=== PATIENT | male | born 1985 | race Caucasian/White ===

== ENCOUNTER 2017-02-25 09:57 | Inpatient (IN) | payer MEDICAID ==
[2017-02-25] VITALS (15 sets, daily range): BP systolic 112–191; BP diastolic 56–130; PULSE 80–98; RESP 16–31; TEMP 99.2; Ht 167.6 cm; Wt 124.5 kg
[~2017-02-25] VITALS: Ht 167.6 cm; Wt 124.5 kg
[~2017-02-25 09:57] MED LIST: IBUP-1542 PO; NPH10OT RIGHT EAR
--- NOTE | 2017-02-25 11:01 | ERD ---
ER Documentation Chief Complaint Date/Time DATE: 02/25/17 TIME: 10:52 Chief Complaint "PAINFUL BALL" ON LT BUTTOCK WITH PAIN RADIATING DOWN LT LEG. HPI 31-year-old male who presented to the emergency room for "I have the painful ball light on my left but it started about a week ago, and it has increased and very tender to touch." Denies headache, loss of consciousness, dizziness, blurry vision, changes in vision, photophobia, facial pain, ear pain, throat pain, difficulty swallowing, neck pain, shoulder pain, chest pain, cough, hemoptysis, abdominal pain, back pain, loss of appetite, nausea, vomiting, hematochezia, diarrhea, constipation, urinary symptoms, bladder and bowel incontinences, extremity weakness, extremity tenderness, numbness or tingling sensation, difficulty walking, recent travel, recent exposure to illness, recent antibiotic use in the last 3 months, fever, chills. Allergy: NKDA. PMH: Denies. Medications: Advil. Tylenol. Surgery: Right knee surgery. Family history: Denies. 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 Smokes about 5 sticks of cigarettes a day. Patient drinks alcoholic beverages. Denies use of illegal drugs. ROS All systems reviewed and are negative except as per history of present illness. Medications Home Meds Active Scripts Neomycin/Polymyxin/Hydrocort* (Cortisporin* Otic) 10 Ml Susp, 4 DROP RIGHT EAR QID for 7 Days, #1 EA Prov:ROSALINO HOUSTON NP 07/11/16 Ibuprofen* (Motrin*) 600 Mg Tab, 600 MG PO Q6H Y for PAIN AND OR ELEVATED TEMP, #30 TAB Prov:ROSALINO HOUSTON NP 07/11/16 Allergies Allergies: Coded Allergies: No Known Allergy (Unverified , 07/11/16) PMhx/Soc History of Surgery: Yes (RT KNEE X2 ) Anesthesia Reaction: No Hx Neurological Disorder: No Hx Respiratory Disorders: No Hx Cardiac Disorders: No Hx Psychiatric Problems: No Hx Miscellaneous Medical Probl: No Hx Alcohol Use: Yes (SOCIAL ) Hx Substance Use: No Hx Tobacco Use: Yes (5CIGS/DAY ) Smoking Status: Current every day smoker Physical Exam Vitals Vital Signs Date Time Temp Pulse Resp B/P Pulse Ox O2 Delivery O2 Flow Rate FiO2 4/10/17 10:10 99.2 114 20 156/90 98 Physical Exam CONSTITUTIONAL: Well-appearing; well-nourished; HEAD: Normocephalic; atraumatic. EYES: Conjunctiva clear, sclera non-icteric, EOM intact. PERRLA. Ears: Hearing intact. EACs clear, TMs non-bulging, non-inflamed, translucent & mobile, ossicles normal appearance, No obstructions, no erythema, no discharges Nose: No obstructions. No polyps. No external lesions. Mucosa non-inflamed. No external lesions, septum and turbinates normal. No rhinorrhea. No discharges. Frontal sinus is non-tender to palpation. Maxillary sinus is non-tender to palpation. MOUTH: Moist mucous membranes, no lesion, no obstructions, no vesicles, no thrush, patent airway Throat: Uvula in midline. Right tonsil is +1 with no erythema, no exudate. Left tonsil is +1 with no erythema, no exudate. Tolerating secretions well. Good gag reflex. Patent airway. Neck: Supple, without lesions, bruits, or adenopathy. No mass. Thyroid non- enlarged and non-tender to palpation. CHEST: Symmetrical chest. Respirations even and not labored. No retractions noted. CARDIOVASCULAR: Normal S1, S2. RRR. No murmurs, gallops. RESPIRATORY: Normal chest excursion with respiration; breath sounds clear and equal bilaterally; no wheezes, rhonchi, or rales. Breathing even and unlabored. Speaking in clear, full, and complete sentences w/ ease. ABDOMEN: Normal bowel sounds normal. Soft, round, non-distended, non-guarding, no tenderness, no rebound, no organomegaly, no masses, no pulsating abdominal mass. No hernia. No peritoneal signs. Perirectal area has abscess and indurated , tender to touch : No CVA tenderness. BACK: Symmetrical shoulder. Spine is midline without deformity, tenderness. No evidence of trauma or deformity. PELVIS: Stable pelvis. No evidence of trauma or deformity. MUSCULOSKELETAL: Normal gait and station. No misalignment, asymmetry, crepitation, defects, tenderness, masses, effusions, decreased range of motion, instability, atrophy or abnormal strength or tone in the head, neck, spine, ribs , pelvis or extremities. No calf tenderness. NEUROVASCULAR: Distal pulses are present. Pedal pulse are present, equal, and normal. Capillary refills are < 2 seconds. NEUROLOGIC: Alert and oriented x4. Speaks full and clear sentences. Cranial Nerves II-XII normal. Sensation to pain, touch, and proprioception normal. Grossly unremarkable. No neurologic deficits. Romberg test is negative. PSYCHOLOGICAL: The patients mood and manner are appropriate. No hallucinations , delusions. Not SI. Not HI. Has the capacity to decide for self SKIN: Normal for age and ethnicity; warm; dry; good turgor; no apparent lesions or exudates. No rashes, hives, discoloration. Intact. Left gluteal (medial part ) redness/swelling, warmth to touch, tender to touch. Results 24 hrs Current Medications Medications (Trade) Dose Ordered Sig/Amber Route PRN Reason Start Time Stop Time Status Last Admin Dose Admin Piperacillin Sod/ Tazobactam Sod 100 ml @ 200 mls/hr ONCE ONCE IVPB 02/25/17 11:30 02/25/17 11:59 Vancomycin HCl (Vancocin) 250 ml @ 125 mls/hr ONCE IVPB 02/25/17 11:30 02/25/17 13:29 Morphine Sulfate (morphine) 4 mg ONCE STAT IV 02/25/17 11:20 02/25/17 11:23 DC Ondansetron HCl (Zofran Inj) 4 mg ONCE STAT IV 02/25/17 11:20 02/25/17 11:23 DC Procedures/MDM Examination: Please see physical examination. Disease process, medical treatment was explained to the patient and family member. They verbalized understanding and agreed with the medical treatment, and follow-up care. Treatment: Re-evaluation: Consultation: Differential diagnosis: Medical decision makin-year-old male who presented to the emergency room for "I have the painful ball light on my left but it started about a week ago, and it has increased and very tender to touch." Patient's complaint, patient' s history about his complaint, my physical findings are consistent with my final diagnosis of Case was discussed with supervising physician, Dr. Carlos Enrique Goddard who agreed with my medical decision making. he also examined the patient. Dr. Leigh also examined the patient. DESTINEY SINGH Feb 25, 2017 11:01 sentences, denies pain, has no neurological deficits, has no neurovascular deficits, difficulty of breathing. Breathing even and unlabored. Lung sounds are clear to auscultation. Not in distress. Appears comfortable. Ambulatory with steady gait. Appears satisfied with care provided here in ED. DESTINEY SINGH Feb 25, 2017 11:01 DESTINEY SINGH Feb 25, 2017 11:01
[2017-02-25] MEDS ORDERED: ONDANSETRON 4 MG INJ IV STA (11:20)
[2017-02-25] MEDS ORDERED: morphine 4 MG/ML VIAL IV STA ×2 (11:20→12:55)
[2017-02-25] MEDS ORDERED: PIPER-TAZO 3.375 GM IV (PMX) 100 ML IVPB ONE (11:30)
[2017-02-25] MEDS ORDERED: VANCOMYCIN 1 GM (PMX) 250 ML IVPB SCH (11:30)
[2017-02-25 11:40] LABS: ADD SCAN DIFF NO
[2017-02-25 11:42] LABS: BASOPHIL # 0.1 10^3/ul (0.0-0.1); BASOPHILS % 0.4 % (0.0-2.0); EOSINOPHILS # 0.2 10^3/ul (0.0-0.5); EOSINOPHILS % 0.7 % (0.0-7.0); HEMATOCRIT 42.7 % (42.0-52.0); HEMOGLOBIN 13.9 g/dl (14.0-18.0); LYMPHOCYTES # 2.2 10^3/ul (0.8-2.9); LYMPHOCYTES % 10.4 % (15.0-51.0); MEAN CORPUSCULAR HEMOGLOBIN 29.8 pg (29.0-33.0); MEAN CORPUSCULAR HGB CONC 32.6 g/dl (32.0-37.0); MEAN CORPUSCULAR VOLUME 91.6 fl (82.0-101.0); MEAN PLATELET VOLUME 8.6 fl (7.4-10.4); MONOCYTE # 1.5 10^3/ul (0.3-0.9); MONOCYTES % 7.2 % (0.0-11.0); NEUTROPHIL # 16.6 10^3/ul (1.6-7.5); NEUTROPHILS % 80.6 % (39.0-77.0); PLATELET COUNT 339 10^3/UL (140-415); RED BLOOD COUNT 4.66 10^6/ul (4.70-6.10); RED CELL DISTRIBUTION WIDTH 12.6 % (11.5-14.5); WHITE BLOOD COUNT 20.6 10^3/ul (4.8-10.8)
[2017-02-25 11:58] LABS: ALBUMIN 3.3 g/dl (3.3-4.9)
[2017-02-25 11:59] LABS: POTASSIUM 4.3 mmol/L (3.5-5.1)
[2017-02-25 12:01] LABS: BILIRUBIN,INDIRECT 0.7 mg/dl (0-1.1); BILIRUBIN,TOTAL 0.7 mg/dl (0.2-1.3); CREATININE 0.83 mg/dl (0.61-1.24)
[2017-02-25 12:02] LABS: ALBUMIN/GLOBULIN RATIO 0.91; TOTAL PROTEIN 6.9 g/dl (6.1-8.1)
[2017-02-25] MEDS ORDERED: IOHEXOL 300MG/ML 150 ML BTL ONE (12:21)
[2017-02-25] MEDS ORDERED: SOD CHLORIDE 0.9% 100 ML ONE (12:21)
--- NOTE | 2017-02-25 12:55 | RADRPT ---
PROCEDURE: CT Abdomen and pelvis with contrast. CLINICAL INDICATION: Left and pelvic abscess. TECHNIQUE: CT scan of the abdomen and pelvis with contrast was performed on a multidetector high-r esolution CT scan. The patient was scanned following the uncomplicated intravenous administration o f 1 ml Omnipaque-300. Coronal and sagittal reformatted images were obtained from the axial source i mages. Standard CT of the abdomen pelvis with contrast protocols were performed. The total exam CTDI equals 23.71 mGy and the total exam DLP equals 1618.23 mGy-cm. One or more of the following dose reduction techniques were used: - Automated exposure control. - Adjustment of the mA and/or kV according to patient size. Use of iterative reconstruction technique. COMPARISON: None FINDINGS: In the medial left gluteal region is an 8 x 4.5 cm the irregular thick-walled loculated fluid collec tion which does not contain air and its anterior medial superior aspect is contiguous with the left perineum/anus. This finding is consistent with an abscess however recommend aspiration for further evaluation. Note that there is mild dependent edema in the subcutaneous fat of the left buttock. N o other localized fluid collections or soft tissue masses. No evidence of soft tissue gas. In the posterior superior right lobe of the liver is a nonenhanced 0.8 cm low density and in the med ial anterior superior right lobe of the liver is a nonenhancing 1.5 cm low density consistent with c ysts. No other intrahepatic masses. The spleen pancreas adrenal glands and kidneys are normal in si ze configuration without focal lesions. No evidence of hydronephrosis bilaterally. The gallbladder is unremarkable and there is no evidence of biliary ductal dilation. New the urinary bladder is un remarkable. Negative for intra-abdominal free air, free fluid, abscesses or lymphadenopathy. There is colonic d iverticulosis but no CT evidence of diverticulitis. The colon is otherwise unremarkable. The stoma ch, small bowel and appendix are unremarkable. The lung bases are unremarkable. The aorta is unrem arkable. New there is mild degenerative changes lower thoracic and lumbar spine. There is a minima l dextrorotoscoliosis of the lumbar spine. There are no acute osseous findings are osteoblastic/ost eolytic lesions. There is a small fat containing left inguinal hernia but no herniated bowel or str angulation. IMPRESSION: 1. In the medial left gluteal region is and 8 x 4.5 cm irregular thick-walled loculated fluid collec tion with its anterior medial superior aspect contiguous with the left perineum/anus. This finding is consistent with an abscess however recommend clinical correlation and aspiration. Additional mild subcutaneous reactive inflammatory changes involving the subcutaneous left buttock. 2. Diverticulosis of the colon but no CT evidence of diverticulitis. Unremarkable appendix. 3. 2 small nonenhancing low densities involving the right lobe of the liver consistent with cysts. 4. Small left inguinal fat-containing hernia but no herniated hour strangulation. RPTAT:AAJJ Physician Meg Date Time Electronically viewed and signed by Mary Kay Mead Physician on 02/25/2017 12:55 BM/
[2017-02-25] MEDS ORDERED: SODIUM CHLORIDE 0.9% 1L BAG IV* STA (12:58)
[2017-02-25] MEDS ORDERED: SOD CHLORIDE 0.9% 1,000 ML IV SCH (13:18)
[2017-02-25] MEDS ORDERED: HYDROmorphONE 1 MG/ML SYG IV STA (13:29)
[2017-02-25] MEDS ORDERED: ACETAMINOPHEN 325 MG TAB PO PRN ×3 (13:30→16:30)
[2017-02-25] MEDS ORDERED: ONDANSETRON 4 MG INJ IV PRN ×4 (13:30→17:00)
--- NOTE | 2017-02-25 13:56 | ERA ---
ER Documentation Chief Complaint Date/Time DATE: 02/25/17 TIME: 13:53 Chief Complaint "PAINFUL BALL" ON LT BUTTOCK WITH PAIN RADIATING DOWN LT LEG. HPI This is a 31-year-old male who presents to the emergency room for evaluation of pain on the left buttocks with shooting down his leg. The patient states that he has had this pain for approximately 4 days duration. He describes it as a sharp pain worse with any pressure that he places on that side. The patient denies any fevers, and was originally seen in our fast track and transferred to my care for further workup. Patient is denying any relieving factors for his pain, and denies being on any antibiotics. ROS All systems reviewed and are negative except as per history of present illness. Medications Home Meds Active Scripts Neomycin/Polymyxin/Hydrocort* (Cortisporin* Otic) 10 Ml Susp, 4 DROP RIGHT EAR QID for 7 Days, #1 EA Prov:ROSALINO HOUSTON REPORT PROGRAMMER 07/11/16 Ibuprofen* (Motrin*) 600 Mg Tab, 600 MG PO Q6H Y for PAIN AND OR ELEVATED TEMP, #30 TAB Prov:ROSALINO HOUSTON REPORT PROGRAMMER 07/11/16 Allergies Allergies: Coded Allergies: No Known Allergy (Unverified , 07/11/16) PMhx/Soc History of Surgery: Yes (RT KNEE X2 ) Anesthesia Reaction: No Hx Neurological Disorder: No Hx Respiratory Disorders: No Hx Cardiac Disorders: No Hx Psychiatric Problems: No Hx Miscellaneous Medical Probl: No Hx Alcohol Use: Yes (SOCIAL ) Hx Substance Use: No Hx Tobacco Use: Yes (5CIGS/DAY ) Smoking Status: Current every day smoker Physical Exam Vitals Vital Signs Date Time Temp Pulse Resp B/P Pulse Ox O2 Delivery O2 Flow Rate FiO2 02/25/17 13:00 76 18 106/86 99 Room Air 02/25/17 10:10 99.2 114 20 156/90 98 Physical Exam INITIAL VITAL SIGNS: Reviewed by me GENERAL: The patient is well developed and appropriate for usual state of health in no apparent distress HEENT: Pupils equal, round, and reactive to light. EOMI. There is no scleral icterus. NECK: C-spine is soft and supple, there is no meningismus. There is no cervical lymphadenopathy. LUNGS: Clear to auscultation bilaterally. There are no rales, wheezes or rhonchi. HEART: Tachycardic no murmurs, clicks, rubs or gallops. ABDOMEN: Soft, non-tender, non-distended. There are bowel sounds in all four quadrants. No rebound or guarding. EXTREMITIES: There is no peripheral cyanosis or edema. No focal swelling or erythema. NEUROLOGICAL: The patient moves all four extremities with 5/5 strength. Cranial nerves II - XII are intact. Normal gait. Alert and oriented SKIN: Left-sided. Rectal abscess with surrounding area of induration, fluctuance, and cellulitis. No purulent drainage noted., Tender to palpation there is no apparent rash or petechiae. HEME/LYMPHATIC: There is no evidence of excessive bruising or lymphedema. PSYCHIATRIC: The patient does not appear anxious or depressed. Result Diagram: 02/25/17 1130 02/25/17 1130 Results 24 hrs Laboratory Tests Test 02/25/17 11:30 02/25/17 12:59 White Blood Count 20.610^3/ul Red Blood Count 4.6610^6/ul Hemoglobin 13.9g/dl Hematocrit 42.7% Mean Corpuscular Volume 91.6fl Mean Corpuscular Hemoglobin 29.8pg Mean Corpuscular Hemoglobin Concent 32.6g/dl Red Cell Distribution Width 12.6% Platelet Count 56346^3/UL Mean Platelet Volume 8.6fl Neutrophils % 80.6% Lymphocytes % 10.4% Monocytes % 7.2% Eosinophils % 0.7% Basophils % 0.4% Nucleated Red Blood Cells % 0.0/100WBC Neutrophils # 16.610^3/ul Lymphocytes # 2.210^3/ul Monocytes # 1.510^3/ul Eosinophils # 0.210^3/ul Basophils # 0.110^3/ul Nucleated Red Blood Cells # 0.010^3/ul Sodium Level 139mmol/L Potassium Level 4.3mmol/L Chloride Level 98mmol/L Carbon Dioxide Level 29mmol/L Anion Gap 16 Blood Urea Nitrogen 11mg/dl Creatinine 0.83mg/dl Glucose Level 136mg/dl Calcium Level 9.0mg/dl Total Bilirubin 0.7mg/dl Direct Bilirubin 0.00mg/dl Indirect Bilirubin 0.7mg/dl Aspartate Amino Transf (AST/SGOT) 15IU/L Alanine Aminotransferase (ALT/SGPT) 19IU/L Alkaline Phosphatase 73IU/L Total Protein 6.9g/dl Albumin 3.3g/dl Globulin 3.60g/dl Albumin/Globulin Ratio 0.91 Lactic Acid Level 1.2mmol/L Current Medications Medications (Trade) Dose Ordered Sig/Amber Route PRN Reason Start Time Stop Time Status Last Admin Dose Admin Piperacillin Sod/ Tazobactam Sod 100 ml @ 200 mls/hr ONCE ONCE IVPB 02/25/17 11:30 02/25/17 11:59 DC 02/25/17 11:34 Vancomycin HCl (Vancocin) 250 ml @ 125 mls/hr ONCE IVPB 02/25/17 11:30 02/25/17 13:29 DC 02/25/17 12:09 Morphine Sulfate (morphine) 4 mg ONCE STAT IV 02/25/17 11:20 02/25/17 11:23 DC 02/25/17 11:30 Ondansetron HCl (Zofran Inj) 4 mg ONCE STAT IV 02/25/17 11:20 02/25/17 11:23 DC 02/25/17 11:31 IV Flush 10 ml 10 ml STK-MED ONCE .ROUTE 02/25/17 12:21 02/25/17 12:22 DC 02/25/17 12:37 Sodium Chloride (NS) 100 ml @ ud STK-MED ONCE .ROUTE 02/25/17 12:21 02/25/17 12:22 DC 02/25/17 12:40 Iohexol (Omnipaque 300mg/ ml) 150 ml STK-MED ONCE .ROUTE 02/25/17 12:21 02/25/17 12:22 DC 02/25/17 12:38 Morphine Sulfate (morphine) 4 mg ONCE STAT IV 02/25/17 12:55 02/25/17 12:56 DC 02/25/17 13:00 Sodium Chloride 3860 ml 3,860 ml BOLUS OVER 2 HOURS STAT IV* 02/25/17 12:58 02/25/17 13:00 DC 02/25/17 13:03 Sodium Chloride (NS) 1,000 ml @ 125 mls/hr Q8H IV 02/25/17 13:18 02/25/17 21:17 Ondansetron HCl (Zofran Inj) 4 mg BRIDGE ORDER PRN IV NAUSEA AND/OR VOMITING 02/25/17 13:30 02/26/17 13:29 Acetaminophen (Tylenol Tab) 650 mg ER BRIDGE PRN PO MILD PAIN/FEVER 02/25/17 13:30 02/26/17 13:29 Hydromorphone HCl (Dilaudid) 1 mg ONCE STAT IV 02/25/17 13:29 02/25/17 13:30 DC 02/25/17 13:32 Procedures/MDM CT abdomen pelvis with: 1. In the medial left gluteal region is and 8 x 4.5 cm irregular thick-walled loculated fluid collection with its anterior medial superior aspect contiguous with the left perineum/anus. This finding is consistent with an abscess however recommend clinical correlation and aspiration. Additional mild subcutaneous reactive inflammatory changes involving the subcutaneous left buttock. 2. Diverticulosis of the colon but no CT evidence of diverticulitis. Unremarkable appendix. 3. 2 small nonenhancing low densities involving the right lobe of the liver consistent with cysts. 4. Small left inguinal fat-containing hernia but no herniated hour strangulation. This 31-year-old male presents to the emergency room for evaluation of pain over the left buttocks. When I evaluated this patient he did have tachycardia, and definitely had what appeared to be up perirectal abscess. The patient did have a surrounding area of cellulitis, and given his extreme pain he had lab work drawn and was given morphine. This patient had lab work drawn and fascia, and had antibiotics started in fast track. When I evaluated this patient his lab work had returned and he did have a leukocytosis of greater than 20,000. Given his tachycardia, leukocytosis, and source of infection this patient does meet sepsis criteria. Blood cultures were obtained after antibiotics were started due to the fact that received this patient after his antibiotics have been started already in fast track. This patient is unable to tolerate a drainage in the emergency room. He will be admitted at this time in the care of . I have contacted our general surgeon litigation attorney associate, Dr. Ellison who agrees to evaluate this patient. This patient is n.p.o. at this time and was given greater than 30 cc/kg of IV normal saline. No need for vasopressors as his mean arterial pressures greater than 65. Critical Care: Excluding all billable procedures Time: 39 minutes Treatments/Evaluations: Close monitoring and treatment of unstable vital signs, cardiorespiratory, and neurologic status, while maintaining tight balance of fluid, respiratory, and cardiac interventions. Departure Diagnosis: Primary Impression: Sepsis Additional Impression: Perirectal abscess Condition: JOHN Benson DO Feb 25, 2017 13:56
--- NOTE | 2017-02-25 14:24 | CONS ---
Date/Time of Note Date/Time of Note DATE: 02/25/17 TIME: 14:21 Assessment/Plan Assessment/Plan Chief Complaint/Hosp Course Morbidly obese 51-year-old male with perianal abscess * Continue nothing by mouth/IV fluid hydration/broad-spectrum intravenous antibiotics * Patient will require incision and drainage. * Discussed with patient including all risks and benefits. He understands and agrees to proceed. Informed consent will be obtained and he'll be scheduled for incision and drainage of perianal abscess Problems: Consultation Date/Type/Reason Admit Date/Time Date of Consultation: Feb 25, 2017 Type of Consultation: GENERAL SURGERY Reason for Consultation Perianal abscess Hx of Present Illness The patient is a morbidly obese 31-year-old male who presented to the emergency room complaining of left sided perianal and buttock pain. This has been present for the past 5 days. He reports gradual enlargement with some redness. He denies any discharge. He denies any fever/chills. There have been no episodes of similar pain in the past. A 14 point review of systems was conducted and was negative except for that which is mentioned in history of present illness Past Medical History Medical History: no pertinent history Past Surgical History Knee surgery Family History Significant Family History: no pertinent family hx Social History Smoking Status: Current every day smoker Exam/Review of Systems Vital Signs Vitals Vital Signs Date Time Temp Pulse Resp B/P Pulse Ox O2 Delivery O2 Flow Rate FiO2 02/25/17 14:18 79 20 123/74 98 Room Air 02/25/17 10:10 99.2 Exam GENERAL: Awake, alert, oriented 3. No acute distress. SKIN: No jaundice. HEENT: PERRLA, EOMI, No Scleral Icterus NECK: Supple without JVD CARDIOVASCULAR: S1S2, regular rate and rhythm. No murmurs appreciated. RESPIRATORY: Clear to auscultation bilaterally. ABDOMEN: Obese, Soft, bowel sounds present, nondistended, nontender to palpation. BUTTOCKS: Left-sided perianal abscess extending to left medial buttocks. Surrounding cellulitis and induration present. Tender to palpation. No discharge. EXTREMITIES: Free range of motion 4. No cyanosis, edema, or clubbing. NEUROLOGIC: Cranial nerves II-XII are intact. Sensation is intact grossly. Results Result Diagram: 02/25/17 1130 02/25/17 1130 Results 24 hrs Laboratory Tests Test 02/25/17 11:30 02/25/17 12:59 White Blood Count 20.6 H Red Blood Count 4.66 L Hemoglobin 13.9 L Hematocrit 42.7 Mean Corpuscular Volume 91.6 Mean Corpuscular Hemoglobin 29.8 Mean Corpuscular Hemoglobin Concent 32.6 Red Cell Distribution Width 12.6 Platelet Count 339 Mean Platelet Volume 8.6 Neutrophils % 80.6 H Lymphocytes % 10.4 L Monocytes % 7.2 Eosinophils % 0.7 Basophils % 0.4 Nucleated Red Blood Cells % 0.0 Neutrophils # 16.6 H Lymphocytes # 2.2 Monocytes # 1.5 H Eosinophils # 0.2 Basophils # 0.1 Nucleated Red Blood Cells # 0.0 Sodium Level 139 Potassium Level 4.3 Chloride Level 98 Carbon Dioxide Level 29 Anion Gap 16 Blood Urea Nitrogen 11 Creatinine 0.83 Glucose Level 136 Calcium Level 9.0 Total Bilirubin 0.7 Direct Bilirubin 0.00 Indirect Bilirubin 0.7 Aspartate Amino Transf (AST/SGOT) 15 Alanine Aminotransferase (ALT/SGPT) 19 Alkaline Phosphatase 73 Total Protein 6.9 Albumin 3.3 Globulin 3.60 H Albumin/Globulin Ratio 0.91 Lactic Acid Level 1.2 Medications Medications Current Medications Sodium Chloride (NS) 1,000 ml @ 125 mls/hr Q8H IV ; Start 02/25/17 at 13:18; Stop 02/25/17 at 21:17 Procedures Procedures PROCEDURE: CT Abdomen and pelvis with contrast. CLINICAL INDICATION: Left and pelvic abscess. TECHNIQUE: CT scan of the abdomen and pelvis with contrast was performed on a multidetector high-resolution CT scan. The patient was scanned following the uncomplicated intravenous administration of 1 ml Omnipaque-300. Coronal and sagittal reformatted images were obtained from the axial source images. Standard CT of the abdomen pelvis with contrast protocols were performed. The total exam CTDI equals 23.71 mGy and the total exam DLP equals 1618.23 mGy- cm. One or more of the following dose reduction techniques were used: - Automated exposure control. - Adjustment of the mA and/or kV according to patient size. Use of iterative reconstruction technique. COMPARISON: None FINDINGS: In the medial left gluteal region is an 8 x 4.5 cm the irregular thick-walled loculated fluid collection which does not contain air and its anterior medial superior aspect is contiguous with the left perineum/anus. This finding is consistent with an abscess however recommend aspiration for further evaluation. Note that there is mild dependent edema in the subcutaneous fat of the left buttock. No other localized fluid collections or soft tissue masses. No evidence of soft tissue gas. In the posterior superior right lobe of the liver is a nonenhanced 0.8 cm low density and in the medial anterior superior right lobe of the liver is a nonenhancing 1.5 cm low density consistent with cysts. No other intrahepatic masses. The spleen pancreas adrenal glands and kidneys are normal in size configuration without focal lesions. No evidence of hydronephrosis bilaterally. The gallbladder is unremarkable and there is no evidence of biliary ductal dilation. New the urinary bladder is unremarkable. Negative for intra-abdominal free air, free fluid, abscesses or lymphadenopathy. There is colonic diverticulosis but no CT evidence of diverticulitis. The colon is otherwise unremarkable. The stomach, small bowel and appendix are unremarkable. The lung bases are unremarkable. The aorta is unremarkable. New there is mild degenerative changes lower thoracic and lumbar spine. There is a minimal dextrorotoscoliosis of the lumbar spine. There are no acute osseous findings are osteoblastic/osteolytic lesions. There is a small fat containing left inguinal hernia but no herniated bowel or strangulation. IMPRESSION: 1. In the medial left gluteal region is and 8 x 4.5 cm irregular thick-walled loculated fluid collection with its anterior medial superior aspect contiguous with the left perineum/anus. This finding is consistent with an abscess however recommend clinical correlation and aspiration. Additional mild subcutaneous reactive inflammatory changes involving the subcutaneous left buttock. 2. Diverticulosis of the colon but no CT evidence of diverticulitis. Unremarkable appendix. 3. 2 small nonenhancing low densities involving the right lobe of the liver consistent with cysts. 4. Small left inguinal fat-containing hernia but no herniated hour strangulation. RPTAT:AAJJ Physician Meg Date Time Electronically viewed and signed by Physician Meg on 02/25/2017 12:55 BM/ CC: DESTINEY SINGH,RIA Vasquez MD Feb 25, 2017 14:24
[2017-02-25] MEDS ORDERED: HYDROCODONE/APAP (5/325) TAB PO PRN ×2 (15:00→16:30)
[2017-02-25] MEDS ORDERED: morphine 2 MG INJ IV PRN (15:00)
[2017-02-25] MEDS ORDERED: NACL 0.9% 3 ML SYG IV SCH (15:00)
[2017-02-25] MEDS ORDERED: ZOLPIDEM 5 MG TAB PO PRN (15:00)
[2017-02-25] MEDS ORDERED: BISACODYL (EC) 5 MG TAB PO PRN (15:00)
[2017-02-25] MEDS ORDERED: DOCUSATE SODIUM 100 MG CAP PO PRN (15:00)
[2017-02-25] MEDS ORDERED: GLYCOPYRROLATE 0.4 MG INJ ONE (15:21)
[2017-02-25] MEDS ORDERED: LIDOCAINE 2% (SDV) 5 ML INJ ONE (15:21)
[2017-02-25] MEDS ORDERED: ROCURONIUM 50 MG INJ ONE (15:21)
[2017-02-25] MEDS ORDERED: PROPOFOL 20 ML ONE (15:21)
[2017-02-25] MEDS ORDERED: MIDAZOLAM 1 MG/ML 2 ML INJ ONE (15:21)
[2017-02-25] MEDS ORDERED: FENTAnyl 50 MCG/ML VIAL ONE (15:21)
[2017-02-25] MEDS ORDERED: NEOSTIGMINE 3 MG/3 ML SYRINGE ONE (15:21)
[2017-02-25] MEDS ORDERED: LIDOCAINE 1%/EPI 30 ML INJ ONE (15:45)
[2017-02-25] MEDS ORDERED: FLUMAZENIL 0.5 MG INJ ONE (15:57)
--- NOTE | 2017-02-25 16:13 | OPR ---
Date/Time of Note Date/Time of Note DATE: 02/25/17 TIME: 16:09 Operative Report Procedure Date: Feb 25, 2017 Preoperative Diagnosis Perianal abscess Postoperative Diagnosis Perianal abscess Operation Performed Incision and drainage of perianal abscess Surgeon: RIA GREENBERG MD Anesthesia: MAC Anesthesiologist: ROSA CASTANO MD Estimated Blood Loss: minimal Specimens Wound cultures and sensitivity Complications: None Pt Condition Post Procedure: stable Disposition: PACU Indications The patient is a morbidly obese 31-year-old male who presented to the emergency room complaining of severe perianal pain. He was diagnosed on physical exam as having a perianal abscess. This was confirmed via CT scan done by the emergency room. He was scheduled for urgent incision and drainage. All risks and benefits benefits of the procedure including, but not limited to: Wound infection, excessive bleeding, prolonged wound healing, abscess recurrence , etc. were all explained to the patient in full detail. He fully understood and wished to proceed with the procedure. Informed consent was obtained. Operative\Procedure Findings Copious amounts of pus drained Procedure Description The patient was brought to the operating room and placed supine on the operating table. Bilateral sequential compression devices were placed on both lower extremities. The patient was given dose of broad-spectrum intravenous antibiotics while in the emergency room. After the induction of adequate sedation the patient was positioned in right lateral decubitus position with the left side up. The buttocks was taped apart. The buttock and perianal area were then prepped and draped in standard surgical fashion. After performance of the surgical timeout the skin over the most fluctuant part of the abscess located in the left perianal area and involving the medial buttocks was anesthetized with 1% lidocaine with epinephrine. Aspiration was done using an 18 -gauge needle with confirmation of pus. An incision was then made using a 15 blade scalpel. Immediately copious amounts of pus were drained. Cultures were taken and sent for microbiological analysis. Once all the pus was suctioned out wound cavity was irrigated with copious amounts of saline. Hemostasis was inspected for and noted to be adequate. The wound was then packed with 1 inch iodoform packing. The incision was cleaned. Further local anesthesia was applied around the incision site. Incision was then dressed with sterile dressings. The patient was then transported to the recovery room in stable condition. All counts were correct at the end of the case 2 RIA GREENBERG MD Feb 25, 2017 16:13
[2017-02-25] MEDS: AMPICILLIN/SULB 3 GM/NS (PMX) 100 ML IVPB SCH ×2 (16:30→21:45)
[2017-02-25] MEDS ORDERED: hydrALAzine 20 MG INJ IV PRN (17:00)
[2017-02-25] MEDS ORDERED: FENTAnyl 50 MCG/ML VIAL IV PRN ×2 (17:00)
[2017-02-25] MEDS ORDERED: MEPERIDINE 25 MG INJ IV PRN (17:00)
[2017-02-25] MEDS ORDERED: HYDROmorphONE (0.2 MG/ML) 10ML SYG IV PRN ×3 (17:00)
[2017-02-25] MEDS ORDERED: DIPHENHYDRAMINE 50 MG INJ IV PRN (17:00)
[2017-02-25] MEDS: HYDROmorphONE 1 MG/ML SYG IV PRN ×2 (18:01→22:03)
[2017-02-25] MEDS: DEXTROSE 5%-0.45% NACL 1,000 ML IV SCH (18:17)
--- NOTE | 2017-02-25 18:37 | HP ---
DATE OF ADMISSION: 02/25/2017 SENIOR CHEMICAL PROCESS ENGINEER: Anselmo Urias MD CHIEF COMPLAINT: Rectal pain. HISTORY OF PRESENT ILLNESS: This is a 31-year-old gentleman with no significant past medical histor y who presents to [facility] secondary to having anal/rectal discomfort. The bo ent presented to [facility] after having this rectal discomfort for the past 7 day s. Upon arrival to ER, the patient's CT abdomen and pelvis was obtained, which showed in the medial left gluteal region there is an 8 x 4.5 cm irregular thick walled loculated fluid collection within the anterior and medial superior aspect and contiguous with the left perineal/anus. This finding c onsistent with abscess; however, recommend clinical correlation and aspiration, diverticulosis of th e colon with no CT evidence of diverticulitis. General surgery was consulted. The patient was plac ed on Zosyn and IV fluids, made n.p.o., pain medication. General surgery was consulted and, after e valuation with general surgery and discussing the mode of the treatment and discussing the risks and the benefits of the surgery, signed a consent. The patient was taken to OR for I and D of the alix anal abscess. The patient tolerated the procedure well and was taken to recovery room. At this jayde e, the patient denies any chest pain, shortness of breath, nausea, vomiting, diarrhea. No headache, dizziness, lightheadedness. No change in visual acuity, diplopia, photophobia, abdominal pain. Is still complaining of having mild gluteal/rectal pain. Otherwise, denies any other discomfort. PAST MEDICAL AND SURGICAL HISTORY: None. SOCIAL HISTORY: Negative x3 for smoking, alcohol, illicit drugs. FAMILY HISTORY: Noncontributory. REVIEW OF SYSTEMS: Denies any fever, chills, weight gain, weight loss, anorexia. No chest pain, pa lpitations, edema, orthopnea. No change in visual acuity, diplopia, photophobia. No headache, dizz iness, lightheadedness. No abdominal pain. No nausea, vomiting, diarrhea. No dysuria, hematuria, urgency, incontinence. No recent travel history. No sick contact. Positive for rectal pain. Othe rwise the 12 review of systems has been found to be negative. PHYSICAL EXAMINATION: VITAL SIGNS: Temperature 96.6, pulse 96, respiration 23, blood pressure 139/75, oxygen saturation 9 7% on room air. GENERAL APPEARANCE: The patient is lying in bed comfortably without any distress. He is awake, yumiko rt, oriented. He is able to answer my questions properly. EYES AND ENT: Conjunctivae and lids are normal. Pupils are normal. Extraocular movements are norm al. Hearing grossly normal. Lips and teeth are normal. Oral mucosa is moist. NECK: Supple. No lymphadenopathy. Trachea is midline. CHEST: Normal expansion of thorax during inspiration. GASTROINTESTINAL: Abdomen is soft, nontender, not distended. Bowel sounds present. No guarding, n o rebound. GENITOURINARY: Deferred. RECTAL: The patient is post surgical. The site is packed with dry dressing. No evidence of hemato ma or bleeding. MUSCULOSKELETAL: Upper and lower extremities within normal limits. LABORATORY WORK AND IMAGING: WBC 12.6, hemoglobin 13.9, hematocrit 42.7, platelets 339. Sodium 139 , potassium 4.3, chloride 98, bicarbonate 29, BUN 11, creatinine 0.83, glucose 136, magnesium 1.2. LFTs all within normal limits. ASSESSMENT AND PLAN: 1. Perianal abscess, status post incision and drainage of perianal abscess. Continue IV antibiotic s, pain medication, IV fluid. Diet as per general surgery recommendation. For deep venous thrombos is prophylaxis, the patient on SCD. 2. We will continue to monitor patient closely. Further recommendations, management and treatment as per clinical course. Dictated By: KASSIE RAJPUT/NTS Conf#: [id number] DID#: [id number]
[2017-02-25] MEDS: HYDROCODONE/APAP (10/325) TAB PO PRN (19:59)
[2017-02-26] MEDS: HYDROmorphONE 1 MG/ML SYG IV PRN ×4 (02:17→19:59)
[2017-02-26] MEDS: DEXTROSE 5%-0.45% NACL 1,000 ML IV SCH ×2 (03:04→10:36)
[2017-02-26] MEDS: HYDROCODONE/APAP (10/325) TAB PO PRN ×2 (04:55→17:18)
[2017-02-26] MEDS: AMPICILLIN/SULB 3 GM/NS (PMX) 100 ML IVPB SCH ×3 (04:56→10:31)
[2017-02-26] MEDS: PANTOPRAZOLE (EC) 40 MG TAB PO SCH (05:00)
[2017-02-26 07:18] VITALS: BP 113/64; RESP 20
[2017-02-26 08:39] LABS: ADD SCAN DIFF NO
--- NOTE | 2017-02-26 08:41 | PN ---
Date/Time of Note Date/Time of Note DATE: 02/26/17 TIME: 08:39 Assessment/Plan Lines/Catheters IV Catheter Type (from Nrsg): Peripheral IV Choe in Place (from Nrsg): No Assessment/Plan Assessment/Plan Morbidly obese 51-year-old male s/p I&D perianal abscess * Packing removed * Continue local wound care * Pain control * Follow up labs * Follow up cultures Discussed with patient and nurse at bedside Subjective 24 Hr Interval Summary Complains of pain, but improved. Afebrile Exam/Review of Systems Vital Signs Vitals Vital Signs Date Time Temp Pulse Resp B/P Pulse Ox O2 Delivery O2 Flow Rate FiO2 02/26/17 07:18 98.1 78 20 113/64 98 02/25/17 17:00 Room Air 02/25/17 16:35 2.0 Intake and Output 02/25/17 02/25/17 02/26/17 15:00 23:00 07:00 Intake Total 900 ml 850 ml Output Total 10 ml Balance 890 ml 850 ml Exam Free Text/Dictation WOUND: clean, decreased cellulitis. Minimal serosanguinous drainage Results Result Diagram: 02/25/17 1130 02/25/17 1130 RIA GREENBERG MD Feb 26, 2017 08:41
[2017-02-26 08:42] LABS: BASOPHIL # 0.1 10^3/ul (0.0-0.1); BASOPHILS % 0.4 % (0.0-2.0); EOSINOPHILS # 0.5 10^3/ul (0.0-0.5); EOSINOPHILS % 3.4 % (0.0-7.0); HEMATOCRIT 44.4 % (42.0-52.0); HEMOGLOBIN 13.8 g/dl (14.0-18.0); LYMPHOCYTES # 4.6 10^3/ul (0.8-2.9); LYMPHOCYTES % 29.3 % (15.0-51.0); MEAN CORPUSCULAR HEMOGLOBIN 29.4 pg (29.0-33.0); MEAN CORPUSCULAR HGB CONC 31.1 g/dl (32.0-37.0); MEAN CORPUSCULAR VOLUME 94.5 fl (82.0-101.0); MEAN PLATELET VOLUME 8.8 fl (7.4-10.4); MONOCYTE # 1.2 10^3/ul (0.3-0.9); MONOCYTES % 7.8 % (0.0-11.0); NEUTROPHIL # 9.2 10^3/ul (1.6-7.5); NEUTROPHILS % 58.5 % (39.0-77.0); PLATELET COUNT 347 10^3/UL (140-415); RED CELL DISTRIBUTION WIDTH 12.5 % (11.5-14.5); WHITE BLOOD COUNT 15.7 10^3/ul (4.8-10.8)
[2017-02-26 09:03] LABS: CALCIUM 8.2 mg/dl (8.4-10.2); CREATININE 0.81 mg/dl (0.61-1.24); POTASSIUM 4.1 mmol/L (3.5-5.1)
[2017-02-26 20:12] VITALS: BP 113/59; RESP 18
[2017-02-27] MEDS: DEXTROSE 5%-0.45% NACL 1,000 ML IV SCH ×2 (04:04)
[2017-02-27] MEDS: PANTOPRAZOLE (EC) 40 MG TAB PO SCH (06:15)
[2017-02-27 07:56] VITALS: BP 122/75; RESP 20
[2017-02-27 08:18] LABS: ADD SCAN DIFF NO
[2017-02-27 08:33] LABS: BASOPHILS % 0.4 % (0.0-2.0); EOSINOPHILS # 0.7 10^3/ul (0.0-0.5); EOSINOPHILS % 6.8 % (0.0-7.0); HEMATOCRIT 40.3 % (42.0-52.0); HEMOGLOBIN 12.6 g/dl (14.0-18.0); LYMPHOCYTES # 3.1 10^3/ul (0.8-2.9); LYMPHOCYTES % 30.4 % (15.0-51.0); MEAN CORPUSCULAR HEMOGLOBIN 29.4 pg (29.0-33.0); MEAN CORPUSCULAR HGB CONC 31.3 g/dl (32.0-37.0); MEAN CORPUSCULAR VOLUME 94.2 fl (82.0-101.0); MEAN PLATELET VOLUME 9.2 fl (7.4-10.4); MONOCYTE # 0.8 10^3/ul (0.3-0.9); MONOCYTES % 7.5 % (0.0-11.0); NEUTROPHIL # 5.5 10^3/ul (1.6-7.5); NEUTROPHILS % 54.2 % (39.0-77.0); PLATELET COUNT 351 10^3/UL (140-415); RED BLOOD COUNT 4.28 10^6/ul (4.70-6.10); RED CELL DISTRIBUTION WIDTH 12.4 % (11.5-14.5)
[2017-02-27 08:47] LABS: CALCIUM 7.8 mg/dl (8.4-10.2); CREATININE 0.78 mg/dl (0.61-1.24); POTASSIUM 3.8 mmol/L (3.5-5.1)
--- NOTE | 2017-02-27 09:52 | PN ---
Date/Time of Note Date/Time of Note DATE: 02/26/17 TIME: 09:50 Late entry Assessment/Plan VTE Prophylaxis VTE Prophylaxis Intervention: SCD's Lines/Catheters IV Catheter Type (from Nrs): Saline Lock Urinary Cath still in place: No Assessment/Plan Chief Complaint/Hosp Course ASSESSMENT AND PLAN: 1. Perianal abscess, status post incision and drainage of perianal abscess. Continue IV antibiotics, pain medication, IV fluid. Diet as per general surgery recommendation. 2. For deep venous thrombosis prophylaxis, the patient on SCD. We will continue to monitor patient closely. Further recommendations, management and treatment as per clinical course. Problems: Subjective 24 Hr Interval Summary Free Text/Dictation Patient denies any chest pain or shortness of breath Tolerating oral intake Minimal rectal discomfort Exam/Review of Systems Vital Signs Vitals Vital Signs Date Time Temp Pulse Resp B/P Pulse Ox O2 Delivery O2 Flow Rate FiO2 02/27/17 07:56 97.6 80 20 122/75 100 02/25/17 17:00 Room Air 02/25/17 16:35 2.0 Intake and Output 02/26/17 02/26/17 02/27/17 15:00 23:00 07:00 Intake Total 350 ml 1900 ml 1780 ml Balance 350 ml 1900 ml 1780 ml Exam General: The patient is moderately overweight, Not in acute distress. HEENT: Atraumatic, normocephalic. The pupils are equal and round . Neck: Supple with full range of motion. Chest: Normal expansion of the thorax during inspiration Lungs: Clear to auscultation bilaterally Heart: Normal S1-S2, Regular rhythm and rate. Abdomen: Soft , nontender, nondistended , bowel sounds are present. Extremities: Normal to inspection, no edema no cyanosis Neurologic: Normal mental status,The patient is awake, alert and oriented . Genitourinary, rectal: Surgical site is packed with dry dressing Results Result Diagram: 02/27/1770402/27/17704 Results 24 hrs Laboratory Tests Test 02/27/17 07:05 White Blood Count 10.0 # Red Blood Count 4.28 L Hemoglobin 12.6 L Hematocrit 40.3 L Mean Corpuscular Volume 94.2 Mean Corpuscular Hemoglobin 29.4 Mean Corpuscular Hemoglobin Concent 31.3 L Red Cell Distribution Width 12.4 Platelet Count 351 Mean Platelet Volume 9.2 Neutrophils % 54.2 Lymphocytes % 30.4 Monocytes % 7.5 Eosinophils % 6.8 Basophils % 0.4 Nucleated Red Blood Cells % 0.0 Neutrophils # 5.5 Lymphocytes # 3.1 H Monocytes # 0.8 Eosinophils # 0.7 H Basophils # 0.0 Nucleated Red Blood Cells # 0.0 Sodium Level 135 Potassium Level 3.8 Chloride Level 102 Carbon Dioxide Level 30 Anion Gap 7 L Blood Urea Nitrogen 8 Creatinine 0.78 Glucose Level 101 Calcium Level 7.8 L Medications Medications Current Medications Dextrose/Sodium Chloride (D5-1/2ns) 1,000 ml @ 80 mls/hr [id number] IV Last administered on 02/27/17 00:00; Admin Dose 80 MLS/HR; Start 02/25/17 at 14:34 Acetaminophen/ Hydrocodone Bitart ([place] (5/325)) 1 tab Q6H PRN PO MODERATE PAIN LEVEL 4-6 Last administered on 02/26/17 10:27; Admin Dose 1 TAB; Start 09/03 at 15:00 Docusate Sodium (Colace) 100 mg Q12H PRN PO CONSTIPATION; Start 02/25/17 at 15: 00 Bisacodyl (Dulcolax) 5 mg DAILY PRN PO CONSTIPATION; Start 02/25/17 at 15:00 Zolpidem Tartrate (Ambien) 5 mg QHS PRN PO SLEEP; Start 02/25/17 at 15:00 Pantoprazole (Protonix Tab) 40 mg DAILY@06 PO Last administered on 02/27/17 06 :15; Admin Dose 40 MG; Start 02/26/17 at 06:00 Hydromorphone HCl (Dilaudid) 1 mg Q4 PRN IV PAIN LEVEL 6-10 Last administered on 02/26/17 19:59; Admin Dose 1 MG; Start 02/25/17 at 16:30 Acetaminophen/ Hydrocodone Bitart ([place] (10/325)) 1 tab Q6H PRN PO PAIN Last administered on 02/26/17 17:18; Admin Dose 1 TAB; Start 02/25/17 at 16:30 Acetaminophen (Tylenol Tab) 650 mg Q6H PRN PO PAIN AND OR ELEVATED TEMP; Start 02/25/17 at 16:30 Ondansetron HCl (Zofran Inj) 4 mg Q6H PRN IV NAUSEA AND/OR VOMITING; Start 09/03 at 16:30 KASSIE CANTU MD Feb 27, 2017 09:52
[2017-02-27] MEDS: HYDROCODONE/APAP (10/325) TAB PO PRN (10:38)
--- NOTE | 2017-02-27 10:38 | PDOCDIS ---
Discharge Instructions CONDITION Patient Condition: Good HOME CARE INSTRUCTIONS: Special Diet: REGULAR DIET ACTIVITY: Activity Restrictions: Slowly Increase Activity Rest between Activity Avoid heavy lifting Avoid Heavy Housework FOLLOW UP/APPOINTMENTS Appointments Follow-up with general surgeon in 1 week KASSIE CANTU MD Feb 27, 2017 10:38
[2017-02-27] MEDS ORDERED: BISA5TAB6 PO (10:40)
[2017-02-27] MEDS ORDERED: PANT40TA4 PO (10:40)
[2017-02-27] MEDS ORDERED: CIPR500T4 PO (10:40)
[2017-02-27] MEDS ORDERED: DOCU-216 PO (10:40)
[2017-02-27] MEDS ORDERED: HYDR-3498 PO (10:40)
--- NOTE | 2017-02-27 11:36 | DS ---
DATE OF ADMISSION: 02/25/2017 DATE OF DISCHARGE: 02/27/2017 [facility] ARCHITECT: Dr. Anselmo Urias. PROCEDURE: Incision and drainage of perineal abscess. DISCHARGE DIAGNOSIS: 1. Perineal abscess, status post incision and drainage of perineal abscess. 2. Wound culture grew E. coli sensitive to ciprofloxacin, gentamicin, Levaquin, resistant to ampici llin and cefazolin. 3. BMI of 44.3, obesity. Diet and exercise was recommended. MEDICATIONS. 1. Bisacodyl. 2. Ciprofloxacin 500 mg x10 days. 3. Colace. 4. [place]. 5. Omeprazole. ALLERGIES: NO KNOWN DRUG ALLERGIES. HOSPITAL COURSE: This is a very pleasant 31-year-old gentleman with no significant past medical his tory who presented to [facility] having anal discomfort. The patient presented to [facility] having rectal discomfort x7 days. Upon arrival to ER, the patient's C T abdomen and pelvis was obtained which showed in the medial left gluteal region there is an 8 x 4.5 cm irregular thickened wall loculated fluid within the anterior medial and superior aspect and cont iguous with the left perianal/anus. This finding consistent with abscess. Patient was started on Z osyn, IV fluid and IV antibiotics, pain medication. General surgery was consulted and patient was t hen taken to OR for incision and drainage of perianal abscess. Patient tolerated the procedure well and was taken to recovery room. The abscess fluid was sent to the lab for microbiology which grew E. coli. His blood culture was found to be negative. Patient was admitted to med/surg where he was continued on IV fluid, pain medication and broad spectrum IV antibiotics, ampicillin and sulbactam. The patient's WBC has been improving significantly. He has been continued on IV pain medication v ia Dilaudid and oral pain medication via [place]. At this time, the patient is only requesting Norc o. His labs are as follows: WBC 10.0, hemoglobin 12.6, hematocrit 40.3, platelets 351. Sodium 135 , potassium 3.8, chloride 102, bicarbonate 30, BUN 8, creatinine 0.78, glucose 101, calcium 7.8. Hi s vitals have been stable with temperature 97.6, pulse 80, respiration 20, blood pressure 122/75, ox ygen saturation 100%. CONDITION AT TIME OF DISCHARGE: Stable. The patient will follow up with general surgery as outpati ent. Wound care and followup as per general surgery. Dictated By: KASSIE RAJPUT/NICOLE Conf#: [id number] DID#: [id number]
--- NOTE | 2017-02-27 13:13 | PN ---
Date/Time of Note Date/Time of Note DATE: 02/27/17 TIME: 13:11 Assessment/Plan Lines/Catheters IV Catheter Type (from Nrsg): Saline Lock Choe in Place (from Nrsg): No Assessment/Plan Assessment/Plan Morbidly obese 51-year-old male s/p I&D perianal abscess postop day #2 * Cultures noted * Stable for discharge home when medically cleared. * Follow-up in office in one week Subjective 24 Hr Interval Summary Feeling much better. Pain controlled on oral pain meds. Afebrile. Exam/Review of Systems Vital Signs Vitals Vital Signs Date Time Temp Pulse Resp B/P Pulse Ox O2 Delivery O2 Flow Rate FiO2 02/27/17 07:56 97.6 80 20 122/75 100 02/25/17 17:00 Room Air 02/25/17 16:35 2.0 Intake and Output 02/26/17 02/26/17 02/27/17 15:00 23:00 07:00 Intake Total 350 ml 1900 ml 1780 ml Balance 350 ml 1900 ml 1780 ml Exam Free Text/Dictation WOUND: clean, cellulitis significantly improved. No drainage. Results Result Diagram: 02/27/17 0705 02/27/17 0705 RIA GREENBERG MD Feb 27, 2017 13:13
== END 2017-02-27 14:55 | disposition home or self-care (01) | DRG 580 ==
LOC: FTE 09:57 → SDS 14:33 → MS2 17:30 → SDS 21:35
PROVIDERS: ADMIT Family Medicine; ATTEND Family Medicine
PROC: 0D9Q0ZZ Drainage of Anus, Open Approach (ICD-10-PCS; principal; 2017-02-25 15:00)
DX: L02.215 Cutaneous abscess of perineum (principal); L02.31 Cutaneous abscess of buttock; Z68.41 Body mass index [BMI] 40.0-44.9, adult; B96.20 Unspecified Escherichia coli [E. coli] as the cause of diseases classified elsewhere; E66.01 Morbid (severe) obesity due to excess calories
CPT/HCPCS: 74177; 80048; 80053; 83605; 85025; 87040; 87070; 96374; 96375; J0295; J1170; J2250; J2270; J2405; J2543; J2710; J3010; J3370; J7030; J7042; Q9967